=== PATIENT | female | born 1970 | race Caucasian/White ===

== ENCOUNTER → 2021-09-01 | Outpatient (CLI) | payer OTHER ==
--- NOTE | 2021-09-01 13:05 | RAD ---
EXAM: Left hand, 3 views. HISTORY: Pain. Fracture follow-up. COMPARISON: None. FINDINGS: 3 views of the left hand are obtained. There is deformity at the base of the fifth distal p halanx the appearance of which favors a subacute ununited fracture or nonunited fracture. There is no dislocation or subluxation. There is a tiny ossicle adjacent to the first interphalangeal joint, lik clara due to a chronic fragmented spur. IMPRESSION: 1. Suspected healing ununited fracture or chronic nonunited fracture involving the base of the fifth distal phalanx. 2. Minimal first interphalangeal joint osteoarthritis. 3. No acute osseous finding. Electronically signed by: Yi Price MD (09/01/2021 1:03 PM) [id number]
== END ==
LOC: RAD 12:44
PROVIDERS: ATTEND Physician Assistant Medical
DX: M19.042 Primary osteoarthritis, left hand (principal); M20.092 Other deformity of left finger(s)
CPT/HCPCS: 73130